=== PATIENT | male | born 1965 | race Caucasian/White ===

== ENCOUNTER 2022-10-13 00:12 | Emergency (ER) | payer OTHER ==
[~2022-10-13] VITALS: Ht 177.8 cm; Wt 72.6 kg
[2022-10-13 00:44] VITALS: BP 126/90; PULSE 91; RESP 18; TEMP 98.4; O2SAT 97
--- NOTE | 2022-10-13 01:05 | NUR ---
pt resting on bed. awake and responsive. not in distress. on monitor
--- NOTE | 2022-10-13 01:09 | NUR ---
dr. peck at bedside
[2022-10-13] MEDS ORDERED: KETOROLAC 30 MG/ML VIAL IVP ONE ×2 (01:15→08:10)
[2022-10-13] MEDS ORDERED: ONDANSETRON 4 MG/2 ML VIAL IVP ONE (01:15)
[2022-10-13] MEDS ORDERED: NACL 0.9% 1,000 ML IV SCH (01:15)
[2022-10-13 01:32] LABS: BASOPHILS % (AUTO) 0.5 % (0.0-2.0); EOSINOPHILS % (AUTO) 0.5 % (0.0-4.0); HEMATOCRIT 44.3 % (36-52); HEMOGLOBIN 15.2 g/dL (12.0-18.0); LYMPHOCYTES # (AUTO) 0.9 K/uL (2.0-11.5); LYMPHOCYTES % (AUTO) 9.1 % (20.5-51.1); MEAN CORPUSCULAR HEMOGLOBIN 30 pg (27-31); MEAN CORPUSCULAR HGB CONC 34 g/dL (33-37); MEAN CORPUSCULAR VOLUME 88.7 fL (80-94); MONOCYTES # (AUTO) 0.7 K/uL (0.8-1.0); MONOCYTES % (AUTO) 7.4 % (1.7-9.3); NEUTROPHILS # (AUTO) 8.2 K/uL (1.8-7.7); NEUTROPHILS % (AUTO) 82.5 % (42.2-75.2); PLATELET COUNT (AUTO) 204 K/uL (140-450); RED BLOOD CELL COUNT(AUTO) 4.99 MIL/uL (4.20-6.10); RED CELL DISTRIBUTION WIDTH 12.9 % (11.6-13.7); WHITE BLOOD COUNT (AUTO) 9.9 K/uL (4.8-10.8)
[2022-10-13 01:45] LABS: ALBUMIN 3.3 g/dL (3.4-5.0); ANION GAP 10.6 (8-16); CARBON DIOXIDE 29.3 mmol/L (21-32); CREATININE 1.5 mg/dL (0.6-1.3); POTASSIUM 3.9 mmol/L (3.5-5.1); TOTAL BILIRUBIN 0.9 mg/dL (0.0-1.0)
--- NOTE | 2022-10-13 02:40 | NUR ---
PT RESTING ON BED. AWAKE AND RESPONSIVE. NOT IN DISTRESS. ON MONITOR
--- NOTE | 2022-10-13 07:15 | NUR ---
Pt report given to caron. Transfer of care at this time.
--- NOTE | 2022-10-13 07:16 | NUR ---
Assumed care of pt. In stable condition. Pt is laying in bed, A/0X4, respirations even and unlabored, no distress noted. Pt is complaining of 8 out of 10 flank pain. MD awaiting callback from urologist to see if pt will be admitted. Son at bedside. Will update pt on admission status as soon as urologist calls back.
[2022-10-13] MEDS ORDERED: TAMS0.4C96 PO (08:33)
[2022-10-13] MEDS ORDERED: IBUP-2213 PO (08:33)
[2022-10-13] MEDS ORDERED: ACET-10509 PO (08:33)
[2022-10-13] MEDS ORDERED: ONDA-188 SL (08:33)
[2022-10-13 08:38] VITALS: TEMP 98.2
--- NOTE | 2022-10-13 09:03 | NUR ---
Pt pending DC. Continue to await for DUPS. Will DC pt once DUPS arrive.
[2022-10-13 10:12] VITALS: BP 124/70; PULSE 74; RESP 17; O2SAT 98
--- NOTE | 2022-10-13 10:12 | NUR ---
Patient discharged with v/s stable. Written and verbal after care instructions given and explained. Patient verbalized understanding. Ambulatory with steady gait. All questions addressed prior to discharge. Advised to follow up with PMD.
== END 2022-10-13 10:12 | disposition home or self-care (01) ==
LOC: MED 00:12
DX: R10.32 Left lower quadrant pain (principal); R11.2 Nausea with vomiting, unspecified; N13.2 Hydronephrosis with renal and ureteral calculous obstruction; N17.9 Acute kidney failure, unspecified
CPT/HCPCS: 36415; 74176; 80053; 81002; 83690; 85025; 96361; 96372; 96374; 96375; 99285; J1885; J2405; J7030

== ENCOUNTER 2023-11-26 21:14 | Emergency (ER) | payer OTHER ==
[~2023-11-26] VITALS: Ht 177.8 cm; Wt 72.6 kg
[~2023-11-26 21:14] MED LIST: ACET500T99 PO; IBUP-2213 PO; ONDA-188 SL; TAMS0.4C96 PO
[2023-11-26 21:17] VITALS: BP 143/79; PULSE 60; RESP 24; TEMP 97.9; O2SAT 100
[2023-11-26] MEDS: ACETAMINOPHEN EXTRA STRENGTH 500 MG TAB PO ONE (22:06)
[2023-11-26] MEDS: KETOROLAC 30 MG/ML VIAL IVP ONE (22:11)
[2023-11-26 22:25] LABS: BASOPHILS % (AUTO) 0.3 % (0.0-2.0); EOSINOPHILS # (AUTO) 0.1 K/uL (0-0.4); EOSINOPHILS % (AUTO) 0.8 % (0.0-4.0); HEMATOCRIT 44.1 % (36-52); HEMOGLOBIN 14.7 g/dL (12.0-18.0); LYMPHOCYTES # (AUTO) 1.9 K/uL (2.0-11.5); LYMPHOCYTES % (AUTO) 14.3 % (20.5-51.1); MEAN CORPUSCULAR HEMOGLOBIN 30 pg (27-31); MEAN CORPUSCULAR HGB CONC 33 g/dL (33-37); MEAN CORPUSCULAR VOLUME 89.7 fL (80-94); MONOCYTES # (AUTO) 0.7 K/uL (0.8-1.0); NEUTROPHILS # (AUTO) 10.7 K/uL (1.8-7.7); NEUTROPHILS % (AUTO) 79.6 % (42.2-75.2); PLATELET COUNT (AUTO) 221 K/uL (140-450); RED BLOOD CELL COUNT(AUTO) 4.92 MIL/uL (4.20-6.10); RED CELL DISTRIBUTION WIDTH 13.1 % (11.6-13.7); WHITE BLOOD COUNT (AUTO) 13.5 K/uL (4.8-10.8)
[2023-11-26 22:38] LABS: ANION GAP 11.2 (8-16); CALCIUM 9.1 mg/dL (8.5-10.1); CARBON DIOXIDE 29.4 mmol/L (21-32); CREATININE 1.4 mg/dL (0.6-1.3); POTASSIUM 3.6 mmol/L (3.5-5.1)
[2023-11-26 22:41] LABS: ALBUMIN 3.6 g/dL (3.4-5.0); BILIRUBIN,DIRECT 0.2 mg/dL (0.0-0.3); TOTAL BILIRUBIN 0.9 mg/dL (0.0-1.0); TOTAL PROTEIN, SERUM 7.7 g/dL (6.4-8.2)
[2023-11-26] MEDS: NACL 0.9% 1,000 ML IV ONE (23:41)
[2023-11-27 00:31] LABS: APPEARANCE,URINE CLEAR (CLEAR); BILIRUBIN,URINE NEGATIVE (NEGATIVE); BLOOD, URINE 3+ (NEGATIVE); COLOR,URINE YELLOW (YELLOW); LEUKOCYTE ESTERASE ,URINE NEGATIVE (NEGATIVE); NITRITE, URINE NEGATIVE (NEGATIVE); PROTEIN,URINE 1+ (NEGATIVE); UGLUCOSE NEGATIVE (NEGATIVE); UROBILINOGEN,URINE 0.2 EU/dL (0.2 - 1)
[2023-11-27 00:51] LABS: BACTERIA,URINE 2+ /HPF (None Seen); CALCIUM OXALATE CRYSTALS,UR 0-10 /HPF (None Seen); MUCUS,URINE 1+ /LPF (None Seen); RBC,URINE 11-20 (MOD) /HPF (0-5); SQUAMOUS EPITHELIAL CELL,UR 0-3 (FEW) /LPF (0-3 (FEW)); WBC,URINE 0-5 /HPF (0-5); YEAST,URINE Few /HPF (None Seen)
[2023-11-27 01:01] VITALS: BP 116/48; PULSE 74; RESP 16; O2SAT 99
[2023-11-27] MEDS: HYDROcodone/APAP 5/325 MG 1 TAB TAB PO ONE (01:08)
[2023-11-27] MEDS: KETOROLAC 30 MG/ML VIAL IVP ONE (01:28)
[2023-11-27] MEDS ORDERED: TAMS0.4C96 PO (01:56)
[2023-11-27] MEDS ORDERED: ACET-8905 PO (01:56)
[2023-11-27] MEDS ORDERED: NAPR-337 PO (01:56)
[2023-11-27] MEDS ORDERED: CEPH-588 PO (01:56)
== END 2023-11-27 02:27 | disposition home or self-care (01) ==
LOC: MED 21:14
DX: R10.32 Left lower quadrant pain (principal); R11.2 Nausea with vomiting, unspecified; Z79.899 Other long term (current) drug therapy
CPT/HCPCS: 36415; 74176; 80048; 80076; 81001; 83690; 85025; 96361; 96374; 96375; 99285; J1885; J7030